=== PATIENT | male | born 1970 | race Caucasian/White ===

== ENCOUNTER 2020-08-09 14:07 | Day surgery (SDC) | payer OTHER ==
[~2020-08-09] VITALS: Ht 177.8 cm; Wt 106.4 kg
[2020-08-09] MEDS ORDERED: CHLORHEXIDINE 15 ML UDC ONE (14:51)
[2020-08-09] MEDS ORDERED: CHLORHEXIDINE 15 ML UDC PO ONE (15:00)
[2020-08-09] MEDS ORDERED: LACTATED RINGERS 1,000 ML IV SCH (15:00)
[2020-08-09 15:02] LABS: BASOPHILS % (AUTO) 1 % (0-1); EOSINOPHILS % (AUTO) 2 % (1-7); LYMPHOCYTES % (AUTO) 33 % (22-44); MEAN CORPUSCULAR HEMOGLOBIN 32.1 pg (27.5-34.5); MEAN CORPUSCULAR HGB CONC 34.4 g/dL (33.2-36.2); MEAN PLATELET VOLUME 7.4 fL (7.4-10.4); MONOCYTES % (AUTO) 8 % (2-9); NEUTROPHILS % (AUTO) 56 % (42-75); PLATELET COUNT 149 x10^3/uL (130-400); RED BLOOD COUNT 5.27 x10^6/uL (4.38-5.82); RED CELL DISTRIBUTION WIDTH 13.2 % (9.4-14.8)
[2020-08-09] MEDS ORDERED: IBUP200T64 PO (15:06)
[2020-08-09] MEDS ORDERED: BUPR1FIL3 SL (15:06)
[2020-08-09 15:07] VITALS: BP 131/87
[2020-08-09 15:09] LABS: MICROSCOPIC AUTO
[2020-08-09 15:14] LABS: ANION GAP 3 mmol/L (5-15); CALCIUM 8.5 mg/dL (8.5-10.1); CHLORIDE 105 mmol/L (98-107); CREATININE 0.91 mg/dL (0.7-1.3)
[2020-08-09] MEDS ORDERED: [UNRECOGNIZED DRUG - OTHER] PO (15:23)
[2020-08-09 15:30] LABS: INTERNATIONAL NORMALIZED RATIO 1.04 (0.93-1.1); PROTHROMBIN TIME 11.1 Seconds (9.6-11.5)
[2020-08-09] MEDS ORDERED: HYDROmorphone 1 MG/ML, 1ML INJ IVPush PRN (16:30)
[2020-08-09] MEDS ORDERED: DIPHENHYDRAMINE 50 MG/ML, 1ML IVPush PRN (16:30)
[2020-08-09] MEDS ORDERED: PROMETHAZINE 25 MG/ML, 1ML IVPush PRN (16:30)
[2020-08-09] MEDS ORDERED: hydrALAzine 20 MG/ML, 1ML IV PRN (16:30)
[2020-08-09] MEDS ORDERED: FENTANYL PF 100 MCG/2ML IV PRN (16:30)
[2020-08-09] MEDS ORDERED: HALOPERIDOL 5 MG/ML IV PRN (16:30)
[2020-08-09] MEDS ORDERED: LABETALOL 5MG/ML, 20ML IV PRN (16:30)
[2020-08-09] MEDS ORDERED: ACETAMINOPHEN 325 MG TABLET PO PRN (16:30)
[2020-08-09] MEDS ORDERED: OXYcodone 5 MG/5 ML ORAL.SOL UDC PO PRN (16:30)
[2020-08-09] MEDS ORDERED: MEPERIDINE/PF 25MG/0.5ML IVPush PRN (16:30)
[2020-08-09] MEDS ORDERED: FENTANYL PF 100 MCG/2ML ONE (17:01)
[2020-08-09] MEDS ORDERED: MIDAZOLAM 1 MG/ML, 2ML ONE (17:01)
[2020-08-09] MEDS ORDERED: KETOROLAC 30 MG/1 ML ONE (17:03)
[2020-08-09] MEDS ORDERED: ONDANSETRON 2MG/ML, 2ML ONE (17:27)
[2020-08-09] MEDS ORDERED: PROPOFOL 10 MG/ML, 20ML ONE (17:27)
[2020-08-09] MEDS ORDERED: DEXAMETHASONE 4 MG/ML, 1ML ONE (17:27)
[2020-08-09] MEDS ORDERED: CEFAZOLIN 1,000 MG ONE (17:27)
== END 2020-08-09 18:40 | disposition home or self-care (01) ==
LOC: OR 14:07
PROVIDERS: ATTEND Student in an Organized Health Care Education/Training Program
DX: D41.4 Neoplasm of uncertain behavior of bladder (principal); Z20.822 Contact with and (suspected) exposure to COVID-19; Z79.899 Other long term (current) drug therapy; Z85.51 Personal history of malignant neoplasm of bladder; Z88.5 Allergy status to narcotic agent
CPT/HCPCS: 36415; 52204; 74018; 80048; 81001; 85025; 85610; 87635; 88307; J0690; J1100; J1885; J2250; J2405; J2704; J3010; J7120; 76000